=== PATIENT | male | born 1990 | race Caucasian/White ===

== ENCOUNTER 2018-04-27 15:59 | Emergency (ER) | payer SELFPAY ==
[~2018-04-27] VITALS: Ht 177.8 cm; Wt 127.0 kg
[2018-04-27 16:16] VITALS: Ht 177.8 cm; Wt 127.0 kg
[2018-04-27 18:14] VITALS: BP 132/92
== END 2018-04-27 18:14 | disposition home or self-care (01) ==
LOC: ED 15:59
DX: J03.90 Acute tonsillitis, unspecified (principal)
CPT/HCPCS: G0480; J0561; J1100; J1885